=== PATIENT | male | born 1960 | race Caucasian/White ===

== ENCOUNTER 2018-03-29 13:59 | Emergency (ER) | payer OTHER ==
[~2018-03-29] VITALS: Ht 177.8 cm; Wt 86.4 kg
[2018-03-29 15:53] VITALS: BP 127/88
== END 2018-03-29 15:56 | disposition home or self-care (01) ==
LOC: EMS 14:01
DX: F10.10 Alcohol abuse, uncomplicated (principal); Y90.8 Blood alcohol level of 240 mg/100 ml or more
CPT/HCPCS: 36415; 99283; G0480

== ENCOUNTER 2018-04-08 08:36 | Inpatient (IN) | payer OTHER ==
[~2018-04-08] VITALS: Ht 177.8 cm; Wt 87.0 kg
[2018-04-08] MEDS ORDERED: SODIUM CHLORIDE 0.9% 1,000 ML IV ONE (09:01)
[2018-04-08] MEDS ORDERED: ACETAMINOPHEN 500 MG TABLET PO ONE (09:15)
[2018-04-08 09:36] LABS: BASOPHILS % (AUTO) 0.8 % (0.0-2.0); EOSINOPHILS % (AUTO) 0.7 % (1.0-6.0); HEMOGLOBIN 13.6 g/dL (13.5-17.5); LYMPHOCYTES # (AUTO) 0.8 K/uL (1.0-4.8); LYMPHOCYTES % (AUTO) 10.6 % (22.0-44.0); MEAN CORPUSCULAR HEMOGLOBIN 38.2 pg (26.0-34.0); MEAN CORPUSCULAR HGB CONC 34.9 G/dL (31.0-37.0); MEAN CORPUSCULAR VOLUME 110 fL (80-100); MONOCYTES # (AUTO) 0.7 K/uL (0.1-1.0); MONOCYTES % (AUTO) 10.3 % (2.0-9.0); NEUTROPHILS # (AUTO) 5.6 K/uL (1.8-7.7); NEUTROPHILS % (AUTO) 77.6 % (40.0-70.0); PLATELET COUNT (AUTO) 172 K/uL (150-450); RED BLOOD CELL COUNT(AUTO) 3.55 MIL/uL (4.50-5.90); RED CELL DISTRIBUTION WIDTH 13.9 % (11.5-14.5)
[2018-04-08] MEDS ORDERED: FUROSEMIDE 40 MG/4 ML VIAL IVP ONE (09:45)
[2018-04-08 09:48] LABS: ANION GAP 10 mmol/L (8-16); CALCIUM, TOTAL 8.7 mg/dL (8.8-10.5); CARBON DIOXIDE 25 mmol/L (22-29); CHLORIDE 108 mmol/L (98-107); CREATININE 0.91 mg/dL (0.60-1.30); GLOMERULAR FILTR. RATE CALC > 60 mL/min (>60); GLUCOSE,RANDOM 98 mg/dL (70-110); POTASSIUM 3.8 mmol/L (3.5-5.1); SODIUM SERUM 143 mmol/L (136-145); UREA NITROGEN, BLOOD 13 mg/dL (7-18)
[2018-04-08 09:55] LABS: INFLUENZA TYPE A NEGATIVE FOR TYPE A (NEGATIVE); INFLUENZA TYPE B NEGATIVE FOR TYPE B (NEGATIVE)
[2018-04-08 10:04] LABS: LACTIC ACID 1.1 mmol/L (0.4-2.0)
[2018-04-08 10:13] LABS: ALANINE AMINOTRANSFERASE 69 U/L (12-78); ALKALINE PHOSPHATASE 51 U/L (46-116); ASPARTATE AMINOTRANSFERASE 47 U/L (15-37); BILIRUBIN,TOTAL 0.9 mg/dL (0.1-1.0); CREATINE KINASE, TOTAL ONLY 161 U/L (39-308); TOTAL PROTEIN, SERUM 6.8 g/dL (6.4-8.2)
[2018-04-08 10:13] LABS: AMPHET/METH SCREEN,URINE NEGATIVE (NEGATIVE); BARBITURATE SCREEN, URINE NEGATIVE (NEGATIVE); BENZODIAZEPINES SCREEN,URINE POSITIVE (NEGATIVE); CANNABINOID SCREEN,URINE NEGATIVE (NEGATIVE); COCAINE SCREEN,URINE NEGATIVE (NEGATIVE); METHADONE SCREEN, URINE NEGATIVE (NEGATIVE); OPIATE SCREEN,URINE NEGATIVE (NEGATIVE)
[2018-04-08 10:14] LABS: PHENCYCLIDINE SCREEN,URINE NEGATIVE (NEGATIVE)
[2018-04-08] MEDS ORDERED: ACETAMINOPHEN 325 MG TABLET PO PRN ×2 (10:30→11:30)
[2018-04-08] MEDS ORDERED: ONDANSETRON HCL 4 MG/2 ML VIAL IVP PRN (10:30)
[2018-04-08 10:55] LABS: APPEARANCE,URINE CLEAR (CLEAR); BILIRUBIN,URINE NEGATIVE (NEGATIVE); GLUCOSE, URINE (UA) NEGATIVE (NEGATIVE); KETONES,URINE NEGATIVE (NEGATIVE); LEUKOCYTE ESTERASE ,URINE NEGATIVE (NEGATIVE); NITRATE,URINE NEGATIVE (NEGATIVE); OCCULT BLOOD,URINE NEGATIVE (NEGATIVE); PROTEIN,URINE NEGATIVE (NEGATIVE); UROBILINOGEN,URINE 0.2 mg/dL (<=1.0)
[2018-04-08] MEDS ORDERED: MAGNESIUM HYDROXIDE SUSPENSION 30 ML UDCUP PO PRN (11:30)
[2018-04-08] MEDS ORDERED: ALBUTEROL SULFATE 2.5 MG/0.5 ML NEB SOLUTION NEB PRN (11:30)
[2018-04-08] MEDS: ASPIRIN 81 MG CHEWABLE TABLET PO SCH (11:43)
[2018-04-08] MEDS: CARVEDILOL 6.25 MG TABLET PO SCH ×2 (11:43→21:53)
[2018-04-08] MEDS: LISINOPRIL 10 MG TABLET PO SCH (11:44)
[2018-04-08] MEDS ORDERED: PNEUMOCOCCAL VACCINE POLYVALENT 0.5 ML VIAL [PPSV23] IM ONE (16:00)
[2018-04-08 16:17] VITALS: BP 131/85
[2018-04-08] MEDS: HEPARIN SODIUM,PORCINE 5,000 UNITS/ML VIAL SQ SCH (17:12)
[2018-04-08 19:55] VITALS: BP 106/68
[2018-04-08] MEDS: DOCUSATE SODIUM 100 MG CAPSULE PO SCH (21:00)
[2018-04-08 23:56] VITALS: BP 101/70
[2018-04-09] VITALS (7 sets, daily range): BP systolic 108–135; BP diastolic 66–104
[2018-04-09] MEDS: HEPARIN SODIUM,PORCINE 5,000 UNITS/ML VIAL SQ SCH ×4 (00:55→23:53)
[2018-04-09] MEDS: PANTOPRAZOLE SODIUM 40 MG DR TABLET PO SCH (08:27)
[2018-04-09] MEDS: LISINOPRIL 10 MG TABLET PO SCH (08:27)
[2018-04-09] MEDS: FUROSEMIDE 20 MG/2 ML VIAL IVP SCH (08:28)
[2018-04-09] MEDS: CARVEDILOL 6.25 MG TABLET PO SCH ×2 (08:28→20:44)
[2018-04-09] MEDS: MULTIVITAMINS WITH MINERALS, THERAPEUTIC TABLET PO SCH (08:28)
[2018-04-09] MEDS: ASPIRIN 81 MG CHEWABLE TABLET PO SCH (08:28)
[2018-04-09] MEDS: DOCUSATE SODIUM 100 MG CAPSULE PO SCH ×2 (09:00→20:44)
[2018-04-09 10:30] LABS: ALANINE AMINOTRANSFERASE 58 U/L (12-78); ALBUMIN 2.9 g/dL (3.4-5.0); ALKALINE PHOSPHATASE 49 U/L (46-116); ANION GAP 8 mmol/L (8-16); ASPARTATE AMINOTRANSFERASE 43 U/L (15-37); BILIRUBIN,TOTAL 0.8 mg/dL (0.1-1.0); CALCIUM, TOTAL 8.6 mg/dL (8.8-10.5); CARBON DIOXIDE 29 mmol/L (22-29); CHLORIDE 107 mmol/L (98-107); CREATININE 0.89 mg/dL (0.60-1.30); GLOMERULAR FILTR. RATE CALC > 60 mL/min (>60); GLUCOSE,RANDOM 77 mg/dL (70-110); POTASSIUM 4.1 mmol/L (3.5-5.1); SODIUM SERUM 144 mmol/L (136-145); TOTAL PROTEIN, SERUM 6.9 g/dL (6.4-8.2); UREA NITROGEN, BLOOD 11 mg/dL (7-18)
[2018-04-09] MEDS ORDERED: LIDOCAINE/PF 1% 30 ML VIAL ONE (10:49)
[2018-04-09] MEDS ORDERED: SODIUM BICARBONATE 50 MEQ/50 ML VIAL ONE (10:49)
[2018-04-09] MEDS ORDERED: HEPARIN SODIUM 1000 UNITS/NS 1,000 ML ONE (10:49)
[2018-04-09] MEDS ORDERED: IOHEXOL 300 MG/ML 150 ML VIAL ONE (10:49)
[2018-04-09] MEDS ORDERED: ALBUTEROL SULFATE 2.5 MG/0.5 ML NEB SOLUTION NEB PRN (11:00)
[2018-04-09 11:15] LABS: INR 1.1 (0.9-1.1); PROTHROMBIN TIME 11.4 SEC (9.4-11.6)
[2018-04-09] MEDS ORDERED: FentaNYL CITRATE-PF 100 MCG/2 ML VIAL ONE (11:58)
[2018-04-09] MEDS ORDERED: IOHEXOL 300 MG/ML 100 ML VIAL ONE (11:59)
[2018-04-09] MEDS ORDERED: HEPARIN SODIUM,PORCINE 1,000 UNITS/ML 10 ML VIAL ONE (11:59)
[2018-04-09] MEDS ORDERED: MIDAZOLAM HCL 2 MG/2 ML VIAL ONE (11:59)
[2018-04-09] MEDS ORDERED: NITROGLYCERIN 50 MG/D5% WATER 0 ML ONE (11:59)
[2018-04-09] MEDS ORDERED: VERAPAMIL HCL 2.5 MG/ML 2 ML VIAL ONE (11:59)
[2018-04-09] MEDS ORDERED: SODIUM CHLORIDE 0.9% 500 ML IV ONE (12:07)
[2018-04-09] MEDS ORDERED: LIDOCAINE 1% 30 ML/SOD BICARB 8.4% 4 ML SQ ONE (12:10)
[2018-04-09] MEDS ORDERED: HEPARIN SODIUM 2,000 UNITS in HEPARIN SODIUM 1000 UNITS/NS 1,000 ML IARTER ONE (12:11)
[2018-04-09] MEDS ORDERED: IOHEXOL 300 MG/ML 150 ML VIAL IARTER ONE (12:13)
[2018-04-10 00:42] VITALS: BP 100/63
[2018-04-10 05:14] VITALS: BP 110/79
[2018-04-10 06:35] LABS: BASOPHILS % (AUTO) 1.2 % (0.0-2.0); EOSINOPHILS % (AUTO) 2.6 % (1.0-6.0); HEMATOCRIT 38.1 % (41-53); HEMOGLOBIN 13.3 g/dL (13.5-17.5); LYMPHOCYTES # (AUTO) 1.4 K/uL (1.0-4.8); LYMPHOCYTES % (AUTO) 29.8 % (22.0-44.0); MEAN CORPUSCULAR HEMOGLOBIN 37.9 pg (26.0-34.0); MEAN CORPUSCULAR VOLUME 108 fL (80-100); MONOCYTES # (AUTO) 0.8 K/uL (0.1-1.0); MONOCYTES % (AUTO) 16.8 % (2.0-9.0); NEUTROPHILS # (AUTO) 2.4 K/uL (1.8-7.7); NEUTROPHILS % (AUTO) 49.6 % (40.0-70.0); PLATELET COUNT (AUTO) 173 K/uL (150-450); RED BLOOD CELL COUNT(AUTO) 3.52 MIL/uL (4.50-5.90)
[2018-04-10 06:58] LABS: ALANINE AMINOTRANSFERASE 57 U/L (12-78); ALBUMIN 2.7 g/dL (3.4-5.0); ALKALINE PHOSPHATASE 43 U/L (46-116); ANION GAP 6 mmol/L (8-16); ASPARTATE AMINOTRANSFERASE 39 U/L (15-37); BILIRUBIN,TOTAL 0.6 mg/dL (0.1-1.0); CALCIUM, TOTAL 8.8 mg/dL (8.8-10.5); CARBON DIOXIDE 30 mmol/L (22-29); CHLORIDE 105 mmol/L (98-107); CREATININE 1.13 mg/dL (0.60-1.30); GLOMERULAR FILTR. RATE CALC > 60 mL/min (>60); GLUCOSE,RANDOM 99 mg/dL (70-110); POTASSIUM 4.5 mmol/L (3.5-5.1); SODIUM SERUM 141 mmol/L (136-145); TOTAL PROTEIN, SERUM 6.4 g/dL (6.4-8.2); UREA NITROGEN, BLOOD 16 mg/dL (7-18)
[2018-04-10 07:28] VITALS: BP 126/83
[2018-04-10] MEDS: DOCUSATE SODIUM 100 MG CAPSULE PO SCH (08:32)
[2018-04-10] MEDS: PANTOPRAZOLE SODIUM 40 MG DR TABLET PO SCH (08:32)
[2018-04-10] MEDS: HEPARIN SODIUM,PORCINE 5,000 UNITS/ML VIAL SQ SCH (08:32)
[2018-04-10] MEDS: ASPIRIN 81 MG CHEWABLE TABLET PO SCH (08:32)
[2018-04-10] MEDS: FUROSEMIDE 20 MG/2 ML VIAL IVP SCH (08:32)
[2018-04-10] MEDS: MULTIVITAMINS WITH MINERALS, THERAPEUTIC TABLET PO SCH (08:32)
[2018-04-10] MEDS: LISINOPRIL 10 MG TABLET PO SCH (08:33)
[2018-04-10] MEDS: CARVEDILOL 6.25 MG TABLET PO SCH (08:33)
[2018-04-10 11:18] VITALS: BP 121/78
[2018-04-10] MEDS ORDERED: FURO-152 PO (11:20)
[2018-04-10] MEDS ORDERED: CARV6.2579 PO (11:21)
[2018-04-10] MEDS ORDERED: ASPI81TA39 PO (11:21)
[2018-04-10] MEDS ORDERED: LISI10TA7 PO (11:21)
== END 2018-04-10 16:18 | disposition home or self-care (01) | DRG 192 ==
LOC: EDUNIT# 08:36 → EMS 08:37 → 5S 14:59
PROVIDERS: ADMIT Internal Medicine; ATTEND Internal Medicine
PROC: 3E02340 Introduction of Influenza Vaccine into Muscle, Percutaneous Approach (ICD-10-PCS; 2018-04-08)
PROC: 4A023N7 Measurement of Cardiac Sampling and Pressure, Left Heart, Percutaneous Approach (ICD-10-PCS; principal; 2018-04-09)
PROC: B2111ZZ Fluoroscopy of Multiple Coronary Arteries using Low Osmolar Contrast (ICD-10-PCS; 2018-04-09)
PROC: B2151ZZ Fluoroscopy of Left Heart using Low Osmolar Contrast (ICD-10-PCS; 2018-04-09)
DX: I11.0 Hypertensive heart disease with heart failure (principal); I42.9 Cardiomyopathy, unspecified; I50.23 Acute on chronic systolic (congestive) heart failure; F10.10 Alcohol abuse, uncomplicated; I34.0 Nonrheumatic mitral (valve) insufficiency; M16.11 Unilateral primary osteoarthritis, right hip; Z97.0 Presence of artificial eye; Z23 Encounter for immunization
CPT/HCPCS: 83605; 87804; 90686; 90732; 93005; 93306; 96374; G0378; J1644; J1940; J2250; J3010; J3490; Q9967

== ENCOUNTER 2019-04-06 07:00 | Inpatient (IN) | payer OTHER ==
[~2019-04-06] VITALS: Ht 177.8 cm; Wt 92.4 kg
[~2019-04-06 07:00] MED LIST: ASPI81TA39 PO; BACITRACIN 50,000 UNITS/VIAL ONE; BUPIVACAINE LIPOSOME/PF 1.3%-13.3MG/ML SUSPENSION 20 ML VIAL INJ ONE; CARV6.2579 PO; FURO-152 PO; LISI10TA7 PO; RINGERS SOLUTION,LACTATED 1,000 ML IV ONE; SODIUM CL IRRIG SOLN BAG 3,000 ML IRRIG ONE; TRANEXAMIC ACID 1,000 MG in DEXTROSE 5%-WATER 50 ML IV ONE
[2019-04-06] MEDS ORDERED: BUPIVACAINE HCL/PF 0.5% 30 ML VIAL ONE (07:02)
[2019-04-06] MEDS ORDERED: RINGERS SOLUTION,LACTATED 1,000 ML IV ONE ×2 (07:30→11:49)
[2019-04-06] MEDS ORDERED: SODIUM CHLORIDE 0.9% 50 ML ONE (09:26)
[2019-04-06] MEDS ORDERED: POVIDONE-IODINE 30 GM OINTMENT TP ONE (09:33)
[2019-04-06] MEDS ORDERED: ACETAMINOPHEN 1000 MG/ISO-OSM 100 ML IV ONE (11:19)
[2019-04-06] MEDS ORDERED: MIDAZOLAM HCL 5 MG/ML VIAL IVP PRN (11:45)
[2019-04-06] MEDS ORDERED: ONDANSETRON HCL 4 MG/2 ML VIAL IVP PRN (11:45)
[2019-04-06] MEDS ORDERED: HYDROmorphone 2 MG/ML SYRINGE IVP PRN ×3 (11:45)
[2019-04-06] MEDS ORDERED: EPHEDrine SULFATE 50 MG/ML VIAL IVP PRN (11:45)
[2019-04-06] MEDS ORDERED: DEXTROSE 5%-LACTATED RINGERS 1,000 ML IV SCH (12:27)
[2019-04-06] MEDS ORDERED: BISACODYL 10 MG RECTAL RECTAL SUPPOSITORY PR PRN (12:30)
[2019-04-06] MEDS ORDERED: MAG HYDROX/AL HYDROX/SIMETH 30 ML SUSP UDCUP PO PRN (12:30)
[2019-04-06] MEDS ORDERED: BACITRACIN 28.4 GM OINTMENT TP PRN (12:30)
[2019-04-06] MEDS ORDERED: DiphenhydrAMINE HCL 50 MG/ML VIAL IVP PRN (12:30)
[2019-04-06] MEDS ORDERED: BENZOCAINE/MENTHOL LOZENGE PO PRN (12:30)
[2019-04-06] MEDS ORDERED: HYDROmorphone 2 MG/ML SYRINGE ONE (12:33)
[2019-04-06] MEDS ORDERED: LABETALOL HCL 5 MG/ML 20 ML VIAL IVP ONE ×2 (12:56→12:57)
[2019-04-06] MEDS ORDERED: ONDANSETRON HCL 4 MG/2 ML VIAL ONE (12:56)
[2019-04-06] MEDS: LABETALOL HCL 5 MG/ML 20 ML VIAL IVP PRN ×2 (13:24→13:50)
[2019-04-06 15:46] VITALS: BP 155/85
[2019-04-06] MEDS: ONDANSETRON HCL 4 MG/2 ML VIAL IVP PRN (16:34)
[2019-04-06] MEDS: LISINOPRIL 10 MG TABLET PO SCH ×2 (16:35→20:08)
[2019-04-06] MEDS: FERROUS SULFATE 325 MG EC TABLET PO SCH (16:43)
[2019-04-06] MEDS ORDERED: SODIUM CHLORIDE 0.9% 250 ML IV ONE (16:55)
[2019-04-06] MEDS: CeFAZolin 1 GM/DEXTROSE 50 ML IV SCH (19:09)
[2019-04-06 19:49] VITALS: BP 166/112
[2019-04-06] MEDS: CYCLOBENZAPRINE HCL 10 MG TABLET PO SCH (20:08)
[2019-04-06] MEDS: ACETAMINOPHEN 1000 MG/ISO-OSM 100 ML IV SCH (20:08)
[2019-04-06] MEDS: FAMOTIDINE 20 MG TABLET PO SCH (20:09)
[2019-04-06] MEDS: DOCUSATE SODIUM 100 MG CAPSULE PO SCH (20:09)
[2019-04-06] MEDS: CARVEDILOL 6.25 MG TABLET PO SCH (20:09)
[2019-04-06 20:23] VITALS: BP 154/103
[2019-04-06 23:57] VITALS: BP 158/93
[2019-04-07] MEDS: ZOLPIDEM TARTRATE 10 MG TABLET PO PRN (00:14)
[2019-04-07] MEDS: ONDANSETRON HCL 4 MG/2 ML VIAL IVP PRN ×2 (00:18→08:15)
[2019-04-07] MEDS: OxyCODONE HCL/ACETAMINOPHEN 5-325 MG TABLET PO PRN ×3 (01:41→23:12)
[2019-04-07] MEDS: HYDROmorphone 2 MG/ML SYRINGE IVP PRN (03:13)
[2019-04-07] MEDS: CeFAZolin 1 GM/DEXTROSE 50 ML IV SCH (03:21)
[2019-04-07 04:00] VITALS: BP 129/92
[2019-04-07] MEDS: ACETAMINOPHEN 1000 MG/ISO-OSM 100 ML IV SCH (04:50)
[2019-04-07] MEDS ORDERED: PROPOFOL 1% 20 ML VIAL IVP ONE (04:51)
[2019-04-07] MEDS ORDERED: LIDOCAINE/PF 2% 5 ML VIAL IM ONE (04:51)
[2019-04-07] MEDS ORDERED: ONDANSETRON HCL 4 MG/2 ML VIAL IVP ONE (04:51)
[2019-04-07] MEDS ORDERED: HYDROmorphone 2 MG/ML SYRINGE IVP ONE (04:51)
[2019-04-07] MEDS ORDERED: FentaNYL CITRATE-PF 100 MCG/2 ML VIAL IVP ONE (04:51)
[2019-04-07] MEDS ORDERED: ROCURONIUM BROMIDE 10 MG/ML 5 ML VIAL IVP ONE (04:51)
[2019-04-07] MEDS ORDERED: MIDAZOLAM HCL 2 MG/2 ML VIAL IVP ONE (04:51)
[2019-04-07] MEDS ORDERED: SUCCINYLCHOLINE CHLORIDE 20 MG/ML 10 ML VIAL IVP ONE (04:51)
[2019-04-07 07:25] VITALS: BP 155/79
[2019-04-07 07:53] LABS: BASOPHILS % (AUTO) 0.1 % (0.0-2.0); EOSINOPHILS % (AUTO) 0 % (1.0-6.0); HEMOGLOBIN 11.8 g/dL (13.5-17.5); LYMPHOCYTES # (AUTO) 0.6 K/uL (1.0-4.8); LYMPHOCYTES % (AUTO) 7.3 % (22.0-44.0); MEAN CORPUSCULAR HEMOGLOBIN 36.9 pg (26.0-34.0); MEAN CORPUSCULAR HGB CONC 34.6 G/dL (31.0-37.0); MEAN CORPUSCULAR VOLUME 107 fL (80-100); MONOCYTES # (AUTO) 1.3 K/uL (0.1-1.0); MONOCYTES % (AUTO) 14.6 % (2.0-9.0); NEUTROPHILS # (AUTO) 6.8 K/uL (1.8-7.7); PLATELET COUNT (AUTO) 111 K/uL (150-450); RED BLOOD CELL COUNT(AUTO) 3.19 MIL/uL (4.50-5.90); RED CELL DISTRIBUTION WIDTH 14.9 % (11.5-14.5)
[2019-04-07 08:02] LABS: ANION GAP 6 mmol/L (8-16); CALCIUM, TOTAL 7.9 mg/dL (8.8-10.5); CARBON DIOXIDE 34 mmol/L (22-29); CHLORIDE 98 mmol/L (98-107); CREATININE 1.07 mg/dL (0.60-1.30); GLOMERULAR FILTR. RATE CALC > 60 mL/min (>60); GLUCOSE,RANDOM 125 mg/dL (70-110); SODIUM SERUM 138 mmol/L (136-145); UREA NITROGEN, BLOOD 16 mg/dL (7-18)
[2019-04-07] MEDS: FUROSEMIDE 20 MG TABLET PO SCH (08:15)
[2019-04-07] MEDS: FAMOTIDINE 20 MG TABLET PO SCH ×2 (08:15→19:51)
[2019-04-07] MEDS: FERROUS SULFATE 325 MG EC TABLET PO SCH ×2 (08:15→17:59)
[2019-04-07] MEDS: ASPIRIN 81 MG CHEWABLE TABLET PO SCH (08:15)
[2019-04-07] MEDS: DOCUSATE SODIUM 100 MG CAPSULE PO SCH ×2 (08:15→19:51)
[2019-04-07] MEDS: LISINOPRIL 10 MG TABLET PO SCH (08:16)
[2019-04-07] MEDS: CARVEDILOL 6.25 MG TABLET PO SCH ×2 (08:16→19:51)
[2019-04-07 11:30] VITALS: BP 117/79
[2019-04-07] MEDS: RIVAROXABAN 10 MG TABLET PO SCH (11:48)
[2019-04-07] MEDS: ChlordiazePOXIDE HCL 25 MG CAPSULE PO SCH ×3 (12:24→23:11)
[2019-04-07] MEDS: MULTIVITAMINS, THERAPEUTIC TABLET PO SCH (12:24)
[2019-04-07] MEDS: THIAMINE HCL 100 MG TABLET PO SCH (14:36)
[2019-04-07] MEDS: FOLIC ACID 1 MG TABLET PO SCH (14:37)
[2019-04-07 15:30] VITALS: BP 110/62
[2019-04-07] MEDS ORDERED: -PHARMACY VACCINE NOTE- MISC ONE (17:45)
[2019-04-07] MEDS ORDERED: INFLUENZA VIRUS VACCINE QVS 2019-20 (3YR+)/PF 60 MCG/0.5 ML SYRINGE IM ONE (17:45)
[2019-04-07] MEDS: LORazepam 2 MG/ML VIAL IVP PRN (18:56)
[2019-04-07] MEDS: CYCLOBENZAPRINE HCL 10 MG TABLET PO SCH (19:51)
[2019-04-07 19:54] VITALS: BP 103/59
[2019-04-08] VITALS (7 sets, daily range): BP systolic 107–136; BP diastolic 69–86
[2019-04-08] MEDS: ZOLPIDEM TARTRATE 10 MG TABLET PO PRN (00:21)
[2019-04-08] MEDS: LORazepam 2 MG/ML VIAL IVP PRN ×4 (00:51→21:11)
[2019-04-08] MEDS: ChlordiazePOXIDE HCL 25 MG CAPSULE PO SCH ×4 (05:17→23:37)
[2019-04-08 05:40] LABS: BASOPHILS % (AUTO) 0.2 % (0.0-2.0); EOSINOPHILS % (AUTO) 0.1 % (1.0-6.0); HEMATOCRIT 26.6 % (41-53); HEMOGLOBIN 9.3 g/dL (13.5-17.5); LYMPHOCYTES # (AUTO) 1.3 K/uL (1.0-4.8); LYMPHOCYTES % (AUTO) 12.6 % (22.0-44.0); MEAN CORPUSCULAR HEMOGLOBIN 37.4 pg (26.0-34.0); MEAN CORPUSCULAR HGB CONC 35.1 G/dL (31.0-37.0); MEAN CORPUSCULAR VOLUME 107 fL (80-100); MONOCYTES # (AUTO) 1.2 K/uL (0.1-1.0); MONOCYTES % (AUTO) 12.4 % (2.0-9.0); NEUTROPHILS # (AUTO) 7.4 K/uL (1.8-7.7); NEUTROPHILS % (AUTO) 74.7 % (40.0-70.0); PLATELET COUNT (AUTO) 79 K/uL (150-450); RED CELL DISTRIBUTION WIDTH 14.8 % (11.5-14.5)
[2019-04-08 05:50] LABS: CALCIUM, TOTAL 7.8 mg/dL (8.8-10.5); CREATININE 2.62 mg/dL (0.60-1.30)
[2019-04-08] MEDS: LISINOPRIL 10 MG TABLET PO SCH (08:19)
[2019-04-08] MEDS: FUROSEMIDE 20 MG TABLET PO SCH (08:20)
[2019-04-08] MEDS: FERROUS SULFATE 325 MG EC TABLET PO SCH ×2 (08:20→19:09)
[2019-04-08] MEDS: THIAMINE HCL 100 MG TABLET PO SCH (08:20)
[2019-04-08] MEDS: FAMOTIDINE 20 MG TABLET PO SCH ×2 (08:20→21:07)
[2019-04-08] MEDS: DOCUSATE SODIUM 100 MG CAPSULE PO SCH ×2 (08:20→21:07)
[2019-04-08] MEDS: FOLIC ACID 1 MG TABLET PO SCH (08:20)
[2019-04-08] MEDS: ASPIRIN 81 MG CHEWABLE TABLET PO SCH (08:20)
[2019-04-08] MEDS: MULTIVITAMINS, THERAPEUTIC TABLET PO SCH (08:20)
[2019-04-08] MEDS: CARVEDILOL 6.25 MG TABLET PO SCH ×2 (08:20→21:07)
[2019-04-08] MEDS: OxyCODONE HCL/ACETAMINOPHEN 5-325 MG TABLET PO PRN (08:21)
[2019-04-08 10:00] LABS: BASOPHILS % (AUTO) 0.2 % (0.0-2.0); EOSINOPHILS % (AUTO) 0 % (1.0-6.0); HEMATOCRIT 26.9 % (41-53); HEMOGLOBIN 9.5 g/dL (13.5-17.5); LYMPHOCYTES # (AUTO) 1.1 K/uL (1.0-4.8); LYMPHOCYTES % (AUTO) 10.1 % (22.0-44.0); MEAN CORPUSCULAR HEMOGLOBIN 37.4 pg (26.0-34.0); MEAN CORPUSCULAR HGB CONC 35.2 G/dL (31.0-37.0); MEAN CORPUSCULAR VOLUME 106 fL (80-100); MONOCYTES # (AUTO) 1.4 K/uL (0.1-1.0); NEUTROPHILS % (AUTO) 76.7 % (40.0-70.0); PLATELET COUNT (AUTO) 94 K/uL (150-450); RED BLOOD CELL COUNT(AUTO) 2.54 MIL/uL (4.50-5.90); RED CELL DISTRIBUTION WIDTH 14.7 % (11.5-14.5)
[2019-04-08] MEDS ORDERED: MAGNESIUM SULFATE 2 GM, MVI, ADULT NO.1 WITH VIT K 10 ML, THIAMINE HCL 100 MG, FOLIC AC... IV ONE ×5 (10:00)
[2019-04-08 10:11] LABS: ANION GAP 9 mmol/L (8-16); CALCIUM, TOTAL 7.9 mg/dL (8.8-10.5); CARBON DIOXIDE 28 mmol/L (22-29); CHLORIDE 96 mmol/L (98-107); CREATININE 2.46 mg/dL (0.60-1.30); GLOMERULAR FILTR. RATE CALC 27 mL/min (>60); GLUCOSE,RANDOM 124 mg/dL (70-110); INR 1.2 (0.9-1.1); POTASSIUM 3.7 mmol/L (3.5-5.1); PROTHROMBIN TIME 11.7 SEC (9.4-11.6); SODIUM SERUM 133 mmol/L (136-145); UREA NITROGEN, BLOOD 38 mg/dL (7-18)
[2019-04-08] MEDS ORDERED: SODIUM CHLORIDE 0.9% 100 ML ONE (10:12)
[2019-04-08] MEDS ORDERED: IOVERSOL 350 MG/ML 100 ML VIAL ONE (10:12)
[2019-04-08] MEDS ORDERED: LORazepam 2 MG/ML VIAL IVP ONE (10:15)
[2019-04-08 10:18] LABS: ALANINE AMINOTRANSFERASE 16 U/L (12-78); ALBUMIN 2.9 g/dL (3.4-5.0); ALKALINE PHOSPHATASE 35 U/L (46-116); ASPARTATE AMINOTRANSFERASE 25 U/L (15-37); BILIRUBIN,TOTAL 1.4 mg/dL (0.1-1.0); TOTAL PROTEIN, SERUM 6.8 g/dL (6.4-8.2)
[2019-04-08] MEDS ORDERED: IOVERSOL 350 MG/ML 50 ML VIAL ONE (10:27)
[2019-04-08 10:37] LABS: HCG,QUANTITATIVE < 1 mIU/mL (0-6)
[2019-04-08 11:37] LABS: GLUCOMETER DEV NAME(LOC) 4E.2; GLUCOSE,POINT OF CARE 133 MG/DL (70-110)
[2019-04-08 16:16] LABS: APPEARANCE,URINE CLEAR (CLEAR); BILIRUBIN,URINE NEGATIVE (NEGATIVE); GLUCOSE, URINE (UA) NEGATIVE (NEGATIVE); KETONES,URINE NEGATIVE (NEGATIVE); LEUKOCYTE ESTERASE ,URINE NEGATIVE (NEGATIVE); NITRATE,URINE NEGATIVE (NEGATIVE); OCCULT BLOOD,URINE NEGATIVE (NEGATIVE); PROTEIN,URINE NEGATIVE (NEGATIVE); UROBILINOGEN,URINE 0.2 mg/dL (<=1.0)
[2019-04-08 16:31] LABS: AMPHET/METH SCREEN,URINE NEGATIVE (NEGATIVE); BARBITURATE SCREEN, URINE NEGATIVE (NEGATIVE); BENZODIAZEPINES SCREEN,URINE POSITIVE (NEGATIVE); CANNABINOID SCREEN,URINE NEGATIVE (NEGATIVE); COCAINE SCREEN,URINE NEGATIVE (NEGATIVE); METHADONE SCREEN, URINE NEGATIVE (NEGATIVE); OPIATE SCREEN,URINE POSITIVE (NEGATIVE); PHENCYCLIDINE SCREEN,URINE NEGATIVE (NEGATIVE)
[2019-04-08 16:34] LABS: BACTERIA,URINE None Seen /HPF (None Seen); RBC,URINE None Seen /HPF (0-2); WBC,URINE 0-2 /HPF (0-5)
[2019-04-08 16:35] LABS: SQUAMOUS EPITHELIAL CELL,UR Rare /LPF (None Seen)
[2019-04-08] MEDS ORDERED: ChlordiazePOXIDE HCL 25 MG CAPSULE PO ONE (18:00)
[2019-04-08] MEDS: RIVAROXABAN 10 MG TABLET PO SCH (19:15)
[2019-04-08] MEDS: OXYGEN THERAPY IH SCH (20:00)
[2019-04-08] MEDS: CYCLOBENZAPRINE HCL 10 MG TABLET PO SCH (21:22)
[2019-04-09] VITALS (7 sets, daily range): BP systolic 89–139; BP diastolic 56–83
[2019-04-09 00:14] LABS: APPEARANCE,URINE CLEAR (CLEAR); BILIRUBIN,URINE NEGATIVE (NEGATIVE); GLUCOSE, URINE (UA) NEGATIVE (NEGATIVE); KETONES,URINE NEGATIVE (NEGATIVE); LEUKOCYTE ESTERASE ,URINE NEGATIVE (NEGATIVE); NITRATE,URINE NEGATIVE (NEGATIVE); OCCULT BLOOD,URINE NEGATIVE (NEGATIVE); PH,URINE 5.5 (5.0-8.0); PROTEIN,URINE NEGATIVE (NEGATIVE)
[2019-04-09 00:20] LABS: AMPHET/METH SCREEN,URINE NEGATIVE (NEGATIVE); BARBITURATE SCREEN, URINE NEGATIVE (NEGATIVE); BENZODIAZEPINES SCREEN,URINE POSITIVE (NEGATIVE); CANNABINOID SCREEN,URINE NEGATIVE (NEGATIVE); COCAINE SCREEN,URINE NEGATIVE (NEGATIVE); METHADONE SCREEN, URINE NEGATIVE (NEGATIVE); OPIATE SCREEN,URINE NEGATIVE (NEGATIVE)
[2019-04-09 00:21] LABS: PHENCYCLIDINE SCREEN,URINE NEGATIVE (NEGATIVE)
[2019-04-09 00:25] LABS: BACTERIA,URINE None Seen /HPF (None Seen); RBC,URINE 0-2 /HPF (0-2); SQUAMOUS EPITHELIAL CELL,UR None Seen /LPF (None Seen); WBC,URINE None Seen /HPF (0-5)
[2019-04-09] MEDS: HYDROmorphone 2 MG/ML SYRINGE IVP PRN ×2 (01:31→06:00)
[2019-04-09 06:30] LABS: BASOPHILS % (AUTO) 0.2 % (0.0-2.0); EOSINOPHILS % (AUTO) 0.2 % (1.0-6.0); HEMATOCRIT 23.1 % (41-53); HEMOGLOBIN 8.1 g/dL (13.5-17.5); LYMPHOCYTES # (AUTO) 1.2 K/uL (1.0-4.8); LYMPHOCYTES % (AUTO) 15.7 % (22.0-44.0); MEAN CORPUSCULAR HEMOGLOBIN 37.4 pg (26.0-34.0); MEAN CORPUSCULAR HGB CONC 34.9 G/dL (31.0-37.0); MEAN CORPUSCULAR VOLUME 107 fL (80-100); MONOCYTES # (AUTO) 1.1 K/uL (0.1-1.0); MONOCYTES % (AUTO) 13.6 % (2.0-9.0); NEUTROPHILS # (AUTO) 5.5 K/uL (1.8-7.7); NEUTROPHILS % (AUTO) 70.3 % (40.0-70.0); PLATELET COUNT (AUTO) 108 K/uL (150-450); RED BLOOD CELL COUNT(AUTO) 2.15 MIL/uL (4.50-5.90); RED CELL DISTRIBUTION WIDTH 14.8 % (11.5-14.5)
[2019-04-09 06:41] LABS: ANION GAP 7 mmol/L (8-16); CARBON DIOXIDE 29 mmol/L (22-29); CHLORIDE 101 mmol/L (98-107); CREATININE 1.05 mg/dL (0.60-1.30); GLOMERULAR FILTR. RATE CALC > 60 mL/min (>60); GLUCOSE,RANDOM 105 mg/dL (70-110); POTASSIUM 3.6 mmol/L (3.5-5.1); SODIUM SERUM 137 mmol/L (136-145); UREA NITROGEN, BLOOD 23 mg/dL (7-18)
[2019-04-09] MEDS: ChlordiazePOXIDE HCL 25 MG CAPSULE PO SCH ×4 (07:17→23:45)
[2019-04-09] MEDS: FERROUS SULFATE 325 MG EC TABLET PO SCH ×2 (08:00→17:33)
[2019-04-09] MEDS: DOCUSATE SODIUM 100 MG CAPSULE PO SCH ×2 (09:30→21:07)
[2019-04-09] MEDS: MULTIVITAMINS, THERAPEUTIC TABLET PO SCH (09:31)
[2019-04-09] MEDS: FAMOTIDINE 20 MG TABLET PO SCH ×2 (09:32→21:07)
[2019-04-09] MEDS: THIAMINE HCL 100 MG TABLET PO SCH (09:32)
[2019-04-09] MEDS: FOLIC ACID 1 MG TABLET PO SCH (09:32)
[2019-04-09] MEDS: CARVEDILOL 6.25 MG TABLET PO SCH ×2 (09:32→21:00)
[2019-04-09] MEDS: OxyCODONE HCL/ACETAMINOPHEN 5-325 MG TABLET PO PRN (09:34)
[2019-04-09] MEDS: ASPIRIN 81 MG CHEWABLE TABLET PO SCH (09:34)
[2019-04-09] MEDS: LISINOPRIL 10 MG TABLET PO SCH (09:34)
[2019-04-09] MEDS: OXYGEN THERAPY IH SCH ×2 (09:35→21:22)
[2019-04-09] MEDS: RIVAROXABAN 10 MG TABLET PO SCH (17:30)
[2019-04-09] MEDS: ACETAMINOPHEN 325 MG TABLET PO PRN (21:07)
[2019-04-09] MEDS: CYCLOBENZAPRINE HCL 10 MG TABLET PO SCH (21:07)
[2019-04-10] MEDS: HYDROmorphone 2 MG/ML SYRINGE IVP PRN ×2 (00:49→09:11)
[2019-04-10 04:30] VITALS: BP 99/57
[2019-04-10] MEDS: ChlordiazePOXIDE HCL 25 MG CAPSULE PO SCH ×3 (06:24→18:42)
[2019-04-10 06:41] LABS: LYMPHOCYTES # (AUTO) 1.5 K/uL (1.0-4.8); NEUTROPHILS # (AUTO) 3.9 K/uL (1.8-7.7); PLATELET COUNT (AUTO) 112 K/uL (150-450); RED CELL DISTRIBUTION WIDTH 14.1 % (11.5-14.5)
[2019-04-10 06:53] LABS: ANION GAP 5 mmol/L (8-16); CARBON DIOXIDE 31 mmol/L (22-29); CHLORIDE 98 mmol/L (98-107); CREATININE 0.99 mg/dL (0.60-1.30); GLOMERULAR FILTR. RATE CALC > 60 mL/min (>60); GLUCOSE,RANDOM 107 mg/dL (70-110); POTASSIUM 3.5 mmol/L (3.5-5.1); SODIUM SERUM 134 mmol/L (136-145); UREA NITROGEN, BLOOD 25 mg/dL (7-18)
[2019-04-10 06:56] LABS: BASOPHILS % (AUTO) 0.5 % (0.0-2.0); EOSINOPHILS % (AUTO) 0.8 % (1.0-6.0); LYMPHOCYTES % (AUTO) 22.2 % (22.0-44.0); MEAN CORPUSCULAR HEMOGLOBIN 36.8 pg (26.0-34.0); MEAN CORPUSCULAR HGB CONC 34.5 G/dL (31.0-37.0); MEAN CORPUSCULAR VOLUME 107 fL (80-100); MONOCYTES # (AUTO) 1.3 K/uL (0.1-1.0); MONOCYTES % (AUTO) 18.8 % (2.0-9.0); NEUTROPHILS % (AUTO) 57.7 % (40.0-70.0); RED BLOOD CELL COUNT(AUTO) 1.64 MIL/uL (4.50-5.90)
[2019-04-10 07:12] LABS: HEMOGLOBIN 6.1 g/dL (13.5-17.5)
[2019-04-10 07:13] LABS: HEMATOCRIT 17.5 % (41-53)
[2019-04-10] MEDS: OXYGEN THERAPY IH SCH ×2 (08:00→20:48)
[2019-04-10 08:12] VITALS: BP 118/70
[2019-04-10] MEDS: MULTIVITAMINS, THERAPEUTIC TABLET PO SCH (09:08)
[2019-04-10] MEDS: FERROUS SULFATE 325 MG EC TABLET PO SCH ×2 (09:08→18:42)
[2019-04-10] MEDS: FOLIC ACID 1 MG TABLET PO SCH (09:08)
[2019-04-10] MEDS: FAMOTIDINE 20 MG TABLET PO SCH ×2 (09:08→20:40)
[2019-04-10] MEDS: LISINOPRIL 10 MG TABLET PO SCH (09:08)
[2019-04-10] MEDS: DOCUSATE SODIUM 100 MG CAPSULE PO SCH ×2 (09:08→20:39)
[2019-04-10] MEDS: THIAMINE HCL 100 MG TABLET PO SCH (09:08)
[2019-04-10] MEDS: CARVEDILOL 6.25 MG TABLET PO SCH ×2 (09:08→20:41)
[2019-04-10] MEDS: ASPIRIN 81 MG CHEWABLE TABLET PO SCH (09:08)
[2019-04-10 09:57] LABS: HEMATOCRIT 18.6 % (41-53)
[2019-04-10 09:58] LABS: HEMOGLOBIN 6.5 g/dL (13.5-17.5)
[2019-04-10] MEDS ORDERED: SODIUM CHLORIDE 0.9% 250 ML IV ONE (11:22)
[2019-04-10 11:31] VITALS: BP 93/53
[2019-04-10] MEDS: RIVAROXABAN 10 MG TABLET PO SCH (12:08)
[2019-04-10 16:18] VITALS: BP 113/59
[2019-04-10] MEDS: ACETAMINOPHEN 325 MG TABLET PO PRN (16:36)
[2019-04-10] MEDS: CYCLOBENZAPRINE HCL 10 MG TABLET PO SCH (20:40)
[2019-04-10 20:48] VITALS: BP 111/67
[2019-04-11] VITALS (7 sets, daily range): BP systolic 106–120; BP diastolic 56–75
[2019-04-11] MEDS: ChlordiazePOXIDE HCL 25 MG CAPSULE PO SCH ×5 (00:04→23:49)
[2019-04-11] MEDS: HYDROmorphone 2 MG/ML SYRINGE IVP PRN ×4 (00:05→23:50)
[2019-04-11 07:14] LABS: BASOPHILS % (AUTO) 0.6 % (0.0-2.0); EOSINOPHILS % (AUTO) 1.5 % (1.0-6.0); HEMOGLOBIN 7.2 g/dL (13.5-17.5); LYMPHOCYTES # (AUTO) 0.9 K/uL (1.0-4.8); LYMPHOCYTES % (AUTO) 14.5 % (22.0-44.0); MEAN CORPUSCULAR HEMOGLOBIN 35.9 pg (26.0-34.0); MEAN CORPUSCULAR HGB CONC 35.2 G/dL (31.0-37.0); MEAN CORPUSCULAR VOLUME 102 fL (80-100); MONOCYTES % (AUTO) 16.9 % (2.0-9.0); NEUTROPHILS # (AUTO) 3.9 K/uL (1.8-7.7); NEUTROPHILS % (AUTO) 66.5 % (40.0-70.0); PLATELET COUNT (AUTO) 134 K/uL (150-450); RED CELL DISTRIBUTION WIDTH 17.3 % (11.5-14.5)
[2019-04-11 07:17] LABS: HEMATOCRIT 20.4 % (41-53)
[2019-04-11 07:30] LABS: ANION GAP 6 mmol/L (8-16); CALCIUM, TOTAL 8.2 mg/dL (8.8-10.5); CARBON DIOXIDE 31 mmol/L (22-29); CHLORIDE 98 mmol/L (98-107); CREATININE 0.83 mg/dL (0.60-1.30); GLOMERULAR FILTR. RATE CALC > 60 mL/min (>60); GLUCOSE,RANDOM 127 mg/dL (70-110); POTASSIUM 3.6 mmol/L (3.5-5.1); SODIUM SERUM 135 mmol/L (136-145); UREA NITROGEN, BLOOD 17 mg/dL (7-18)
[2019-04-11] MEDS: OXYGEN THERAPY IH SCH ×2 (07:57→20:00)
[2019-04-11] MEDS: MULTIVITAMINS, THERAPEUTIC TABLET PO SCH (08:05)
[2019-04-11] MEDS: DOCUSATE SODIUM 100 MG CAPSULE PO SCH ×2 (08:05→20:08)
[2019-04-11] MEDS: FAMOTIDINE 20 MG TABLET PO SCH ×2 (08:05→20:08)
[2019-04-11] MEDS: CARVEDILOL 6.25 MG TABLET PO SCH ×2 (08:05→20:08)
[2019-04-11] MEDS: ASPIRIN 81 MG CHEWABLE TABLET PO SCH (08:05)
[2019-04-11] MEDS: FOLIC ACID 1 MG TABLET PO SCH (08:05)
[2019-04-11] MEDS: LISINOPRIL 10 MG TABLET PO SCH (08:05)
[2019-04-11] MEDS: THIAMINE HCL 100 MG TABLET PO SCH (08:05)
[2019-04-11] MEDS: FERROUS SULFATE 325 MG EC TABLET PO SCH ×2 (08:06→17:58)
[2019-04-11] MEDS ORDERED: MAGNESIUM SULFATE 2 GM/WATER 50 ML IV ONE (13:30)
[2019-04-11] MEDS: RIVAROXABAN 10 MG TABLET PO SCH (17:52)
[2019-04-11] MEDS: CYCLOBENZAPRINE HCL 10 MG TABLET PO SCH (20:08)
[2019-04-12] VITALS (14 sets, daily range): BP systolic 107–145; BP diastolic 62–99
[2019-04-12] MEDS: OxyCODONE HCL/ACETAMINOPHEN 5-325 MG TABLET PO PRN ×2 (04:28→08:43)
[2019-04-12] MEDS: ChlordiazePOXIDE HCL 25 MG CAPSULE PO SCH ×3 (05:29→17:48)
[2019-04-12 07:23] LABS: BASOPHILS % (AUTO) 0.5 % (0.0-2.0); EOSINOPHILS % (AUTO) 1.6 % (1.0-6.0); LYMPHOCYTES # (AUTO) 1.1 K/uL (1.0-4.8); LYMPHOCYTES % (AUTO) 16.4 % (22.0-44.0); MEAN CORPUSCULAR HEMOGLOBIN 35.4 pg (26.0-34.0); MEAN CORPUSCULAR HGB CONC 34.8 G/dL (31.0-37.0); MEAN CORPUSCULAR VOLUME 102 fL (80-100); MONOCYTES # (AUTO) 1.3 K/uL (0.1-1.0); MONOCYTES % (AUTO) 19.5 % (2.0-9.0); PLATELET COUNT (AUTO) 167 K/uL (150-450); RED BLOOD CELL COUNT(AUTO) 1.89 MIL/uL (4.50-5.90); RED CELL DISTRIBUTION WIDTH 16.9 % (11.5-14.5)
[2019-04-12 07:37] LABS: ANION GAP 7 mmol/L (8-16); CALCIUM, TOTAL 8.1 mg/dL (8.8-10.5); CARBON DIOXIDE 28 mmol/L (22-29); CHLORIDE 95 mmol/L (98-107); CREATININE 0.98 mg/dL (0.60-1.30); GLOMERULAR FILTR. RATE CALC > 60 mL/min (>60); GLUCOSE,RANDOM 113 mg/dL (70-110); HEMOGLOBIN 6.7 g/dL (13.5-17.5); POTASSIUM 4.1 mmol/L (3.5-5.1); SODIUM SERUM 130 mmol/L (136-145); UREA NITROGEN, BLOOD 15 mg/dL (7-18)
[2019-04-12 07:38] LABS: HEMATOCRIT 19.2 % (41-53)
[2019-04-12] MEDS: OXYGEN THERAPY IH SCH ×2 (08:00→20:00)
[2019-04-12] MEDS: MULTIVITAMINS, THERAPEUTIC TABLET PO SCH (08:42)
[2019-04-12] MEDS: LISINOPRIL 10 MG TABLET PO SCH (08:42)
[2019-04-12] MEDS: DOCUSATE SODIUM 100 MG CAPSULE PO SCH ×2 (08:42→20:29)
[2019-04-12] MEDS: FOLIC ACID 1 MG TABLET PO SCH (08:43)
[2019-04-12] MEDS: FERROUS SULFATE 325 MG EC TABLET PO SCH ×2 (08:43→17:48)
[2019-04-12] MEDS: CARVEDILOL 6.25 MG TABLET PO SCH ×2 (08:43→20:30)
[2019-04-12] MEDS: THIAMINE HCL 100 MG TABLET PO SCH (08:43)
[2019-04-12] MEDS: FAMOTIDINE 20 MG TABLET PO SCH (08:43)
[2019-04-12] MEDS: ASPIRIN 81 MG CHEWABLE TABLET PO SCH (08:44)
[2019-04-12] MEDS ORDERED: SODIUM CHLORIDE 0.9% 500 ML IV ONE ×2 (11:27→12:46)
[2019-04-12] MEDS ORDERED: MAGNESIUM SULFATE 3 GM in DEXTROSE 5%-WATER 100 ML IV ONE (11:30)
[2019-04-12] MEDS: HYDROmorphone 2 MG/ML SYRINGE IVP PRN (11:51)
[2019-04-12] MEDS: PANTOPRAZOLE SODIUM 40 MG/VIAL IVP SCH ×2 (14:03→20:30)
[2019-04-12] MEDS: RIVAROXABAN 10 MG TABLET PO SCH (17:48)
[2019-04-12] MEDS: CYCLOBENZAPRINE HCL 10 MG TABLET PO SCH (20:30)
[2019-04-12 20:32] LABS: HEMATOCRIT 25.5 % (41-53)
[2019-04-13 00:20] VITALS: BP 123/76
[2019-04-13] MEDS: ChlordiazePOXIDE HCL 25 MG CAPSULE PO SCH ×4 (00:44→18:07)
[2019-04-13 04:05] VITALS: BP 121/80
[2019-04-13 06:29] LABS: BASOPHILS % (AUTO) 0.5 % (0.0-2.0); HEMATOCRIT 24.5 % (41-53); HEMOGLOBIN 8.5 g/dL (13.5-17.5); LYMPHOCYTES # (AUTO) 0.9 K/uL (1.0-4.8); LYMPHOCYTES % (AUTO) 15.2 % (22.0-44.0); MEAN CORPUSCULAR HEMOGLOBIN 34.3 pg (26.0-34.0); MEAN CORPUSCULAR HGB CONC 34.8 G/dL (31.0-37.0); MEAN CORPUSCULAR VOLUME 99 fL (80-100); MONOCYTES # (AUTO) 1.2 K/uL (0.1-1.0); MONOCYTES % (AUTO) 18.6 % (2.0-9.0); NEUTROPHILS % (AUTO) 64.7 % (40.0-70.0); PLATELET COUNT (AUTO) 235 K/uL (150-450); RED BLOOD CELL COUNT(AUTO) 2.48 MIL/uL (4.50-5.90); RED CELL DISTRIBUTION WIDTH 18.2 % (11.5-14.5)
[2019-04-13] MEDS: HYDROmorphone 2 MG/ML SYRINGE IVP PRN ×2 (06:39→18:28)
[2019-04-13 06:49] LABS: ANION GAP 4 mmol/L (8-16); CALCIUM, TOTAL 8.4 mg/dL (8.8-10.5); CARBON DIOXIDE 30 mmol/L (22-29); CHLORIDE 98 mmol/L (98-107); CREATININE 0.87 mg/dL (0.60-1.30); GLOMERULAR FILTR. RATE CALC > 60 mL/min (>60); GLUCOSE,RANDOM 114 mg/dL (70-110); POTASSIUM 4.2 mmol/L (3.5-5.1); SODIUM SERUM 132 mmol/L (136-145); UREA NITROGEN, BLOOD 13 mg/dL (7-18)
[2019-04-13 07:17] VITALS: BP 109/67
[2019-04-13] MEDS: OXYGEN THERAPY IH SCH (08:00)
[2019-04-13] MEDS: FOLIC ACID 1 MG TABLET PO SCH (08:46)
[2019-04-13] MEDS: LISINOPRIL 10 MG TABLET PO SCH (08:46)
[2019-04-13] MEDS: ASPIRIN 81 MG CHEWABLE TABLET PO SCH (08:46)
[2019-04-13] MEDS: DOCUSATE SODIUM 100 MG CAPSULE PO SCH ×2 (08:46→20:41)
[2019-04-13] MEDS: MULTIVITAMINS, THERAPEUTIC TABLET PO SCH (08:46)
[2019-04-13] MEDS: THIAMINE HCL 100 MG TABLET PO SCH (08:46)
[2019-04-13] MEDS: FERROUS SULFATE 325 MG EC TABLET PO SCH ×2 (08:46→18:07)
[2019-04-13] MEDS: PANTOPRAZOLE SODIUM 40 MG/VIAL IVP SCH ×2 (08:46→20:42)
[2019-04-13] MEDS: CARVEDILOL 6.25 MG TABLET PO SCH ×2 (08:46→20:42)
[2019-04-13] MEDS: OxyCODONE HCL/ACETAMINOPHEN 5-325 MG TABLET PO PRN ×2 (08:46→16:23)
[2019-04-13 11:28] VITALS: BP 117/69
[2019-04-13 13:33] LABS: HEMATOCRIT 21.9 % (41-53); HEMOGLOBIN 7.6 g/dL (13.5-17.5)
[2019-04-13 14:57] VITALS: BP 128/81
[2019-04-13] MEDS ORDERED: MAGNESIUM SULFATE 3 GM in DEXTROSE 5%-WATER 100 ML IV ONE (15:30)
[2019-04-13] MEDS: RIVAROXABAN 10 MG TABLET PO SCH (18:00)
[2019-04-13 20:05] VITALS: BP 97/60
[2019-04-13] MEDS: CYCLOBENZAPRINE HCL 10 MG TABLET PO SCH (20:42)
[2019-04-14 00:10] VITALS: BP 112/73
[2019-04-14] MEDS: ChlordiazePOXIDE HCL 25 MG CAPSULE PO SCH ×3 (00:17→11:37)
[2019-04-14] MEDS: HYDROmorphone 2 MG/ML SYRINGE IVP PRN ×3 (00:17→08:31)
[2019-04-14 05:20] VITALS: BP 142/91
[2019-04-14 06:56] LABS: BASOPHILS % (AUTO) 0.6 % (0.0-2.0); EOSINOPHILS % (AUTO) 2.5 % (1.0-6.0); HEMATOCRIT 23.3 % (41-53); HEMOGLOBIN 8.2 g/dL (13.5-17.5); LYMPHOCYTES # (AUTO) 1.3 K/uL (1.0-4.8); LYMPHOCYTES % (AUTO) 19.6 % (22.0-44.0); MEAN CORPUSCULAR HEMOGLOBIN 34.7 pg (26.0-34.0); MEAN CORPUSCULAR HGB CONC 35.1 G/dL (31.0-37.0); MEAN CORPUSCULAR VOLUME 99 fL (80-100); MONOCYTES # (AUTO) 1.3 K/uL (0.1-1.0); MONOCYTES % (AUTO) 19.1 % (2.0-9.0); NEUTROPHILS # (AUTO) 3.9 K/uL (1.8-7.7); NEUTROPHILS % (AUTO) 58.2 % (40.0-70.0); PLATELET COUNT (AUTO) 279 K/uL (150-450); RED BLOOD CELL COUNT(AUTO) 2.35 MIL/uL (4.50-5.90); RED CELL DISTRIBUTION WIDTH 18.2 % (11.5-14.5)
[2019-04-14 07:10] LABS: ANION GAP 7 mmol/L (8-16); CALCIUM, TOTAL 8.3 mg/dL (8.8-10.5); CARBON DIOXIDE 29 mmol/L (22-29); CHLORIDE 98 mmol/L (98-107); CREATININE 0.87 mg/dL (0.60-1.30); GLOMERULAR FILTR. RATE CALC > 60 mL/min (>60); GLUCOSE,RANDOM 100 mg/dL (70-110); POTASSIUM 3.9 mmol/L (3.5-5.1); SODIUM SERUM 134 mmol/L (136-145); UREA NITROGEN, BLOOD 12 mg/dL (7-18)
[2019-04-14 08:15] VITALS: BP 151/80
[2019-04-14] MEDS: FERROUS SULFATE 325 MG EC TABLET PO SCH (08:27)
[2019-04-14] MEDS: THIAMINE HCL 100 MG TABLET PO SCH (08:27)
[2019-04-14] MEDS: FOLIC ACID 1 MG TABLET PO SCH (08:27)
[2019-04-14] MEDS: ASPIRIN 81 MG CHEWABLE TABLET PO SCH (08:27)
[2019-04-14] MEDS: PANTOPRAZOLE SODIUM 40 MG/VIAL IVP SCH (08:28)
[2019-04-14] MEDS: DOCUSATE SODIUM 100 MG CAPSULE PO SCH (08:28)
[2019-04-14] MEDS: CARVEDILOL 6.25 MG TABLET PO SCH (08:28)
[2019-04-14] MEDS: LISINOPRIL 10 MG TABLET PO SCH (08:28)
[2019-04-14] MEDS: MULTIVITAMINS, THERAPEUTIC TABLET PO SCH (08:28)
[2019-04-14] MEDS ORDERED: MAGNESIUM OXIDE 400 MG TABLET PO ONE (09:15)
[2019-04-14] MEDS ORDERED: ACET-66 PO (11:35)
[2019-04-14] MEDS: OxyCODONE HCL/ACETAMINOPHEN 5-325 MG TABLET PO PRN (12:12)
== END 2019-04-14 14:55 | DRG 301 ==
LOC: 6N 07:00 → 4E 10:37 → 5S 04-08 16:45 → 5N 04-10 07:32 → 5S 04-12 04:14 → 5N 04-12 05:19
PROVIDERS: ADMIT Orthopaedic Surgery; ATTEND Internal Medicine
PROC: 0SR906Z Replacement of Right Hip Joint with Oxidized Zirconium on Polyethylene Synthetic Substitute, Open Approach (ICD-10-PCS; principal; 2019-04-06 10:15)
PROC: 30233N1 Transfusion of Nonautologous Red Blood Cells into Peripheral Vein, Percutaneous Approach (ICD-10-PCS; 2019-04-12)
DX: M16.11 Unilateral primary osteoarthritis, right hip (principal); G93.41 Metabolic encephalopathy; E44.0 Moderate protein-calorie malnutrition; I11.0 Hypertensive heart disease with heart failure; I50.9 Heart failure, unspecified; D64.9 Anemia, unspecified
CPT/HCPCS: 70551; 72170; 73501; 80307; 82270; 83735; 85014; 85018; 86850; 86900; 86901; 86920; 88300; 90686; 93005; 97110; 97116; 97162; 97166; 97530; 97535; C9113; C9290; G0238; G0378; G0480; J0131; J0330; J0690; J1170; J1200; J2060; J2250; J2405; J2704; J3010; J3411; J3475; J3490; J7030; J7040; J7050; J7060; J7120; P9016